=== PATIENT | female | born 1980 | race Caucasian/White ===

== ENCOUNTER → 2016-10-20 | Emergency (ER) | payer OTHER ==
[~2016-10-20] VITALS: Ht 165.1 cm; Wt 87.1 kg
[~2016-10-20] MED LIST: Amaryl2 MG PO; CYCLOBENZAPRINE5 M3 PO; DOXYCYCLINE100 M3 PO; FLEXERIL5 MG PO; HUMALOG100 U/ML SC; INVOKANA100 MG PO; JANUVIA100 MG PO; LANTUS100 U/ML SC; LISINOPRIL5 MG PO; METFORMIN HCL500 MG PO; METFORMIN1000 MG PO; METFORMIN500 MG PO; MOTRIN600 MG PO; MOTRIN800 MG PO; Motrin,Rufen800 MG PO; NKHM; NORCO 325 MG-51 TAB PO; NOVOLOG MI100 UNIT/2 SQ; TRAMADOL HCL50 MG PO; VICODIN 500 MG-1 TAB PO; Zofran4 MG PO
[2016-10-20 11:07] VITALS: BP 110/74
[2016-10-20 11:20] LABS: BILIRUBIN NEGATIVE (NEGATIVE); BLOOD NEGATIVE (NEGATIVE); CLARITY CLEAR (CLEAR); COLOR YELLOW (YELLOW); GLUCOSE 3+ (NEGATIVE); KETONE NEGATIVE (NEGATIVE); LEUKO ESTERASE NEGATIVE (NEGATIVE); NITRITE NEGATIVE (NEGATIVE); PROTEIN NEGATIVE (NEGATIVE); SPECIFIC GRAVITY <= 1.005 (1.005-1.030); UROBILINOGEN 0.2 E.U./dl (0.2-1.0)
[2016-10-20 11:28] LABS: BACTERIA TRACE; RBC 0-2 rbc/hpf (0-2); URINE REFLEX COMMENT NO (NO); WBC 0-2 wbc/hpf (0-5)
== END ==
LOC: ED 10:59
PROVIDERS: Emergency Medicine
DX: M54.6 Pain in thoracic spine (principal); F17.200 Nicotine dependence, unspecified, uncomplicated; E11.9 Type 2 diabetes mellitus without complications; Z98.890 Other specified postprocedural states; Z79.899 Other long term (current) drug therapy; Z88.1 Allergy status to other antibiotic agents